=== PATIENT | male | born 1955 | race Caucasian/White ===

== ENCOUNTER 2017-03-26 11:41 | Emergency (ER) | payer OTHER ==
[~2017-03-26] VITALS: Ht 180.3 cm; Wt 113.6 kg
[2017-03-26 12:00] VITALS: BP 127/77; PULSE 62; RESP 16; O2SAT 96
--- NOTE | 2017-03-26 14:08 | ED.REPORT ---
HPI-General Illness Date of Service March 26, 2017 ED Provider: Abimael Dobbins DO The patient is a 61 year old male who was sent to the emergency department for an irregular rhythm. The patient was going to have [facility] and when they hooked him up to the monitor they found that he was in an irregular rhythm that appeared to be atrial fibrillation. The patient feels fine at this time and has no complaints. He specifically denies chest pain , palpitations, shortness of breath, dizziness or lightheadedness. He believes he was previously told he was in an irregular rhythm many years ago. He does not take any prescribed medications. Nursing Notes Stated Complaint: HEART RATE /A-FIB Chief Complaint: Dysrhythmia/Cardiac Nursing Notes Reviewed: Yes Allergies: Coded Allergies: No Known Allergies (Unverified , 03/26/17) Scheduled Metoprolol Succinate ER (Metoprolol Succinate ER) 25 Mg Tab.er.24h 25 MG PO DAILY General Time Seen by MD: 14:06 Chief Complaint Other (irregular rhythm) Hx Obtained From: Patient Arrived By: Walk-in Sudden in Onset?: No Onset Occurred: Onset unknown Symptom Duration: Duration unknown Severity: Current: No pain currently Severity: Maximum: No pain Recent Healthcare: No recent hospitalization, Recent doctor visit Similar Sx Previous: Yes Past Medical History Past Medical History Irregular rhythm Family History Noncontributory Smoking History Unknown if Ever Smoker Social History Other Social History: Local resident Ambulatory Status Independent Review of Systems +irregular rhythm Full Review of Systems Respiratory: Denies: Dyspnea on exertion, Shortness of breath Cardiovascular: Denies: Chest pain, Palpitations Neurologic: Denies: Dizziness, Lightheaded Complete sys rev & neg: except as marked. Physical Exam Vital Signs Vital Signs Date Time Temp Pulse Resp B/P Pulse Ox O2 Delivery O2 Flow Rate FiO2 03/26/17 16:27 60 18 128/91 96 Room Air 03/26/17 14:39 36.7 57 133/85 98 Room Air 03/26/17 12:00 36.7 62 16 127/77 96 Room Air Initial VS: Reviewed Head / Eyes: Atraumatic, Normocephalic, PERRL ENT: Mucous membranes moist, Conjunctiva normal, No scleral icterus Neck: Supple, Non-tender, Full range of motion Respiratory: Breath sounds normal, Clear to auscultation, No respiratory distress Abdomen / GI: Soft, Non-tender, No guarding, No rebound, No distention Lymphatic: No lymphadenopathy Extremities: Vascular intact, Neuro intact, No swelling, No tenderness Skin: Warm, Dry, No cyanosis Neurologic: Alert, Oriented, Nonfocal Psychiatric: Mood/affect normal, Behavior normal, Normal thought content General/Constitutional: Awake, Alert, Cooperative Cardiovascular: Heart rate NL, Heart sounds NL, No gallop, No murmurs, No rubs , Peripheral circulation NL, Pulses = bilaterally, No gross BP differential Heart Rate / Rhythm: Positive: Irregular rhythm Interpretation & Diagnostics Lab Results Interpretation Result Diagram: 03/26/17 1510 03/26/17 1510 Test 03/26/17 15:10 White Blood Count 8.7th/mm3 (3.8-10.1) Red Blood Count 5.57mil/mm3 (4.40-5.80) Hemoglobin 16.6g/dL (13.8-17.2) Hematocrit 47.6% (41.0-50.0) Mean Corpuscular Volume 85.5fL (81-100) Mean Corpuscular Hemoglobin 29.8pg (27.0-35.0) Mean Corpuscular Hemoglobin Concent 34.9% (32.0-37.0) Red Cell Distribution Width 13.6% (12.3-15.4) Platelet Count 335bil/L (150-400) Neutrophils (%) (Auto) 68.5% (40-74) Lymphocytes (%) (Auto) 17.8% (14-46) Monocytes (%) (Auto) 11.9% (4-12) Eosinophils (%) (Auto) 0.6% (0-5) Basophils (%) (Auto) 1.1% (0-3) Sodium Level 141mEq/L (134-144) Potassium Level 4.6mEq/L (3.5-5.2) Chloride Level 104mEq/L (97-108) Carbon Dioxide Level 23mmol/L (18-29) Blood Urea Nitrogen 20mg/dL (8-27) Creatinine 0.93mg/dL (0.76-1.27) Estimat Glomerular Filtration Rate 88mL/min (>59) Glucose Level 103mg/dL (60-99) Calcium Level 10.0mg/dL (8.5-10.1) Total Bilirubin 0.9mg/dL (0.0-1.2) Aspartate Amino Transf (AST/SGOT) 33U/L (0-50) Alanine Aminotransferase (ALT/SGPT) 35U/L (0-44) Alkaline Phosphatase 82U/L (25-160) Total Protein 7.1g/dL (6.4-8.4) Albumin 4.3g/dL (3.4-5.0) Hold Schmitt Top Tube Received (Received) ECG Interpretation ECG Interpretation: Atrial fibrillation with a rate of 115 Time: 14:01 Interpreted by: ED physician Re-Eval/Medical Decision Med Decision/Clinical Course CHADS2 score: 0 Patient arrives with symptomatic atrial fibrillation. Patient is a stable candidate for outpatient evaluation. Metoprolol started. Risk stratification low, warfarin not initiated. Will follow up with PCP. Source of Hx: Old records Time of Eval: 14:21 Re-Evaluation/Progress Note: Discussed plan for lab work. Time of Eval: 16:11 Re-Evaluation/Progress Note: Rechecked the patient. Discussed lab results, diagnosis, and plan for discharge. All questions were addressed. Counseled Regarding: Diagnosis, Lab results, Need for follow-up, When/why to return to ED Discharge & Departure Primary Impression: Atrial fibrillation Atrial fibrillation type: unspecified Qualified Code: I48.91 - Unspecified atrial fibrillation Disposition: Home Discharge Condition All VS Reviewed: Yes Condition: Stable Patient Instructions: A-fib (Atrial Fibrillation) (ED) Additional Instructions: Thank you for entrusting us with your care today. It does appear that you are in an irregular rhythm called atrial fibrillation. Your lab results today look good. It is important to followup with your regular doctor in the next few days for further management of this. Call today or tomorrow to schedule an appointment. You will need an echocardiogram, which is an ultrasound of your heart. Continue taking metoprolol every day. Take 324 mg of aspirin daily. We have sent a copy of this note to Dr. Lou so he will have access to your lab results. Please return to the emergency department if you develop chest pain, palpitations, shortness of breath, dizziness, lightheadedness, or any other new or concerning symptoms. Referrals: Karsten Lou MD Scribe Attestation Portions of this note were transcribed by Monique Benitez. I, Dr. Dobbins personally performed the history, physical exam and medical decision-making; I reviewed and confirmed the accuracy of the information in the transcribed note. Signed by: Nisha Chavez, 03/26/2017 at 1620. copies to: Karsten Lou MD, Timothy S DO March 26, 2017 14:08 Monique Benitez March 26, 2017 14:25
[2017-03-26] MEDS ORDERED: MeTOProlol XL 25 mg ER24 Tablet PO ONE (14:25)
[2017-03-26 14:39] VITALS: BP 133/85; PULSE 57; O2SAT 98
[2017-03-26 15:27] LABS: BASOPHILS % (AUTO) 1.1 % (0-3); EOSINOPHILS % (AUTO) 0.6 % (0-5); MONOCYTES % (AUTO) 11.9 % (4-12); Mean Corpuscular Hemoglobin 29.8 pg (27.0-35.0); Mean Corpuscular Volume 85.5 fL (81-100); NEUTROPHILS % (AUTO) 68.5 % (40-74); Platelet Count 335 bil/L (150-400)
[2017-03-26] MEDS ORDERED: METO25TA99 PO (16:15)
[2017-03-26 16:27] VITALS: BP 128/91; PULSE 60; RESP 18; O2SAT 96
== END 2017-03-26 16:28 | disposition home or self-care (01) ==
LOC: SED 11:41
DX: I48.91 Unspecified atrial fibrillation (principal)